=== PATIENT | female | born 1970 ===

== ENCOUNTER 2017-01-03 20:33 | Emergency (ER) | payer MEDICAID ==
--- NOTE | 2017-01-03 21:18 | C.PDOC ---
History Of Present Illness 46 y/o female c/o urinary symptoms for last month; was seen at [facility] one month ago for this and took an keflex with brief resolution of symptoms which have since returned and gotten worse in last few days. pt seen by Dr Bettencourt last week and had blood work and urine test and culture done but not results yet. pt c/o hematuria, suprapubic tenderness, lower back pain., no fever or chills, no nausea or vomiting. Time Seen by Provider: 01/03/17 20:37 Chief Complaint (Nursing): Female Genitourinary Past Medical History Vital Signs: Last Vital Signs Temp 98.6 F 01/03/17 20:40 Pulse 65 01/03/17 22:57 Resp 18 01/03/17 22:57 BP 124/71 01/03/17 22:57 Pulse Ox 99 01/03/17 22:57 - Medical History PMH: HTN Family History: States: Unknown Family Hx - Social History Hx Alcohol Use: No Hx Substance Use: No - Immunization History Hx Tetanus Toxoid Vaccination: No Hx Influenza Vaccination: No Hx Pneumococcal Vaccination: No Review Of Systems Constitutional: Negative for: Fever, Chills Cardiovascular: Negative for: Chest Pain Respiratory: Negative for: Cough, Shortness of Breath Gastrointestinal: Positive for: Abdominal Pain. Negative for: Nausea, Vomiting Genitourinary: Positive for: Dysuria, Frequency, Hematuria Neurological: Negative for: Weakness, Numbness Physical Exam - Physical Exam Appears: Non-toxic, No Acute Distress Skin: Warm, Dry Head: Atraumatic, Normacephalic Neck: Normal ROM Cardiovascular: Rhythm Regular, No Murmur Respiratory: Normal Breath Sounds, No Wheezing Gastrointestinal/Abdominal: Bowel Sounds, Soft, Tenderness (mild suprapubic tenderness), No Guarding, No Rebound Back: CVA Tenderness (mild bilateral) Neurological/Psych: Oriented x3, Normal Speech, Normal Cognition ED Course And Treatment O2 Sat by Pulse Oximetry: 99 Medical Decision Making Medical Decision Making: pt with urinary symptoms and hematuria, txed one month ago with return of symptoms. 1047 pm: pt given 1 gram rocephin iv in ed and will d/c with macrobid. pt advised to follow urine culture results with her pmd tomorrow to ensure macrobid is sensitive. Disposition Counseled Patient/Family Regarding: Diagnosis, Need For Followup, Rx Given - Disposition Referrals: Elle Bettencourt MD [Staff Provider] - Disposition: HOME/ ROUTINE Disposition Time: 22:49 Condition: STABLE Additional Instructions: Seguimiento de los resultados de la cultura de orina con el Dr. Rut yang - asegrese de macrobid es sensible. Jill lquidos aumentados. Regrese a ER para un empeoramiento de los sntomas. Prescriptions: Nitrofurantoin Macrocrystals [Macrobid] 100 mg PO BID #14 cap Instructions: Urinary Tract Infection in Women (ED) Forms: Gen Discharge Inst Lao, [employer] (Lao), Work Excuse Print Language: YI - Clinical Impression Clinical Impression: Urinary tract infection
[2017-01-03 21:21] VITALS: TEMP 98.6; O2SAT 99
[2017-01-03 21:52] LABS: RBC URINE 1695 /hpf (0-3); URINE BACTERIA MOD (<OCC); URINE BILIRUBIN NEGATIVE (NEGATIVE); URINE BLOOD 3+ (NEGATIVE); URINE COLOR Yellow (YELLOW); URINE GLUCOSE (UA) NORMAL (Normal); URINE KETONE NEGATIVE (NEGATIVE); URINE LEUKOCYTE ESTERASE 3+ Leu/uL (Negative); URINE PROTEIN 2+ mg/dL (NEGATIVE); URINE UROBILINOGEN NORMAL mg/dL (0.2-1.0); WBC URINE 3032 /hpf (0-5)
[2017-01-03] MEDS ORDERED: Sodium Chloride 0.9% 1,000 ML IV ONE (22:01)
[2017-01-03] MEDS ORDERED: cefTRIAXone IV 1 gm in Dextros 50 ML IVPB ONE (22:04)
[2017-01-03 22:57] VITALS: BP 124/71; PULSE 65; RESP 18
== END 2017-01-03 22:57 | disposition home or self-care (01) ==
LOC: C.ER 20:33
DX: N39.0 Urinary tract infection, site not specified (principal)
CPT/HCPCS: 81001; 82948; 87086; 87181; 96365; 99285; J0696; J7040

== ENCOUNTER 2017-01-17 19:18 | Emergency (ER) | payer OTHER, MEDICAID ==
[2017-01-17 19:28] VITALS: BMI 25.0
[2017-01-17 19:29] VITALS: RESP 18; TEMP 97.6; O2SAT 98
--- NOTE | 2017-01-17 19:48 | C.PDOC ---
History Of Present Illness 46 yo female c/o left leg laceration which accorded one hour ago. 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 There was a knife sticking out of the cart which cut her leg. No change in sensation. No other injury. No up to date on tetanus. Time Seen by Provider: 01/17/17 19:25 Chief Complaint (Nursing): Abnormal Skin Integrity History Per: Patient History/Exam Limitations: no limitations Onset/Duration Of Symptoms: Hrs (1) Location Of Injury: Left: Leg Past Medical History Vital Signs: Last Vital Signs Temp 97.6 F 01/17/17 19:28 Pulse 70 01/17/17 19:28 Resp 18 01/17/17 19:28 BP 150/81 01/17/17 19:28 Pulse Ox 98 01/17/17 20:11 - Medical History PMH: HTN Family History: States: Unknown Family Hx - Social History Hx Alcohol Use: No Hx Substance Use: No - Immunization History Hx Tetanus Toxoid Vaccination: No Hx Influenza Vaccination: No Hx Pneumococcal Vaccination: No Review Of Systems Constitutional: Negative for: Fever Neurological: Negative for: Weakness, Numbness Physical Exam - Physical Exam Appears: Well, Non-toxic, No Acute Distress Skin: Warm, Dry, Rash ((+) 3 cm laceration to the left lateral leg) Head: Atraumatic, Normacephalic Eye(s): bilateral: Normal Inspection, EOMI Nose: Normal Oral Mucosa: Moist Neck: Normal ROM, Supple Chest: Symmetrical Respiratory: No Accessory Muscle Use Extremity: Normal ROM, Capillary Refill (< 2 sec), No Swelling Extremity: Bilateral: Normal Color And Temperature, Normal ROM Pulses: Left Dorsalis Pedis: Normal, Right Dorsalis Pedis: Normal Neurological/Psych: Oriented x3, Normal Speech, Normal Motor, Normal Sensation Gait: Steady ED Course And Treatment O2 Sat by Pulse Oximetry: 98 Progress Note: Discussed wound care, wound check in 2 days and to return to ER if symtpoms of infection occur. Laceration - Laceration Repair left leg Wound Length (In cm): 3 Description Of Wound: Linear, Stellate Wound Cleansed With: Betadine Anesthesia: Lidocaine 1%, With Epi Wound Examination: Irrigated With Saline, No FB With Wound Exploration, No Tendon Injury With Wound Exploration Wound Closure: Suture (nylon 4-0) Suture Technique And Material Used: Interrupted Wound Complexity: Simple Disposition - Disposition Referrals: Elle Bettencourt MD [Primary Care Provider] - Disposition: HOME/ ROUTINE Disposition Time: 20:10 Condition: STABLE Additional Instructions: Wound check in2 days. Suture removal in 7-10 days. wAtch for signs of infection including redness, swelling and discharge. Prescriptions: Bacitracin OINT 1 applic TP BID #1 tube Instructions: Laceration (ED) Forms: [employer] (Malay) - Clinical Impression Clinical Impression: Laceration of left leg
[2017-01-17] MEDS ORDERED: Bacitracin 500 Units/gm Oint Foilpak UD TOP ONE (19:49)
[2017-01-17] MEDS ORDERED: Lidocaine 1%/Epinephrine 1:100000 30 ml vial IJ ONE (19:49)
[2017-01-17] MEDS ORDERED: Bacitracin 500 Units/gm Oint Foilpak UD ONE (20:07)
[2017-01-17] MEDS ORDERED: Lidocaine 2% w Epi 1:100,000 Inj IJ ONE (20:08)
[2017-01-17 20:17] VITALS: BP 138/75; PULSE 75
== END 2017-01-17 20:35 | disposition home or self-care (01) ==
LOC: SUPCPDRO 19:18 → C.ER 19:18
DX: S81.812A Laceration without foreign body, left lower leg, initial encounter (principal); W26.0XXA Contact with knife, initial encounter; Y93.H3 Activity, building and construction; Y92.59 Other trade areas as the place of occurrence of the external cause; Y99.0 Civilian activity done for income or pay; Z23 Encounter for immunization